=== PATIENT | female | born 1925 | race Caucasian/White ===

== ENCOUNTER 2016-09-22 11:05 | Emergency (ER) | payer MEDICARE ==
[2016-09-22 11:05] VITALS: BMI 21.1
[2016-09-22] MEDS ORDERED: SODIUM CHLORIDE 0.9% 10 ML FLUSH FLUSH PRN (11:14)
[2016-09-22] MEDS ORDERED: NS 1,000 ML IV ONE (11:14)
[2016-09-22 11:15] VITALS: TEMP 97.5
--- NOTE | 2016-09-22 11:17 | EDPRACDOC ---
- General Information Stated Complaint: FLU S/S Time Seen by Provider: 09/22/16 11:07 Information Source: Patient Mode Of Arrival: Ambulance Home Medications: Home Medications Atorvastatin Calcium [Lipitor] 10 mg PO DAILY 10/01/13 Levothyroxine [Synthroid, Levoxyl] 75 mcg PO DAILY 10/01/13 Raloxifene [Evista] 60 mg PO DAILY 10/01/13 Cholecalciferol (Vitamin D3) [Vitamin D3] 5,000 unit PO DAILY 09/22/16 Donepezil HCl [Aricept] 10 mg PO DAILY 09/22/16 Losartan Potassium [Cozaar] 50 mg PO DAILY 09/22/16 Nitrofurantoin [Macrobid] 100 mg PO BID #14 cap 09/22/16 Allergies/Adverse Reactions: Allergies Allergy/AdvReac Type Severity Reaction Status Date / Time codeine [Codeine] Allergy Unknown Nausea/Vomi Verified 09/22/16 13:23 ting - History of Present Illness Onset: 3 days Exact Onset of Symptoms: Unknown HPI: Pt c/o generalized weakness and malaise x 3 days. Denies fever, cough, congestion, cp, sob, abd pain, n/v, changes in bowel or bladder, leg swelling, rash. Symptoms Started: Reports: Gradually Symptoms Description: Constant Weakness: Bilateral: Generalized Symptoms: Reports: Weak Symptom Severity: Reports: Unable to performs ADL's Associated signs and symptoms:: Reports: None ED Past Medical History - History Reviewed Yes Nurses notes reviewed and agree except as marked - Patient Medical History Cardiac History: Reports: Hypertension, Hypercholesterolemia Systemic History: Reports: Hypothyroidism Surgical History: Reports: Cholecystectomy, Tonsillectomy/Adnoidectomy, Other ( RIGHT OOPHORECTOMY, bilateral hips) - Social Medical History Smoking Status: Never smoker ETOH: None Substance Abuse: None EDM Review of Systems - Review of Systems Constitutional: Fatigue, Weakness Ears: No Symptoms Reported. negative: Pain, Hearing Loss, Drainage, Ear Pulling Throat: Hoarseness. negative: No Symptoms Reported, Pain, Swelling Nose: No Symptoms Reported. negative: Congestion, Bleeding, Discharge, Injection, Swelling, Deformity, Ecchymosis, Tender, Abrasion, Laceration Mouth: No Symptoms Reported. negative: Pain, Drooling Respiratory: No Symptoms Reported. negative: Cough, Brassy Cough, Barky Cough, Shortness of Breath, Wheezing, Hemoptysis Cardiovascular: No Symptoms Reported. negative: Chest Pain, Palpitations, Syncope, Edema, Orthopnea, PND, Skin Mottling, Cyanosis Gastrointestinal: No Symptoms Reported. negative: Pain, Constipation, Nausea, Vomiting, Diarrhea, Melena, Formula Intolerance Genitourinary: No Symptoms Reported. negative: Dysuria, Hematuria, Frequency, Discharge, Bleeding, Testicular Pain, Neurological: Weakness. negative: No Symptoms Reported, Dizziness, Gait Difficulty, Headache, Numbness, Seizure, Speech Difficulty Musculoskeletal: No Symptoms Reported. negative: Neck, Chestwall, Ribs, Back, Shoulder, Arm, Elbow, Forearm, Wrist, Hand, Pelvis, Hip, Femur, Knee, Leg, Ankle , Foot Integumentary: No Symptoms Reported. negative: Itching, Rash, Bruising, Wound Allergic/Immunologic: No Symptoms Reported. negative: Hives, Itching Hematologic: No Symptoms Reported. negative: Lymphadenopathy, Easy Bruising, Easy Bleeding Psychiatric: No Symptoms Reported. negative: Anxiety, Depression, Hallucinations, Insomnia, Suicidal - Physical Exam Constitutional: Alert Oriented to: Time, Person, Place Last recorded Vital Signs: Oxygen Pulse Oxygen Saturation O2 Device Oxygen Flow Rate Fraction of Inspired Oxygen ( FIO2) - HEENT Head: Normal ( normocephalic) Eye Exam: Normal (PERRL, EOMI, Sclera white) Oropharynx: Normal (Pharynx:Moist without exudate,Gums-no swelling) Tympanic Membrane: Normal ENT EAC: Normal Nose: No Symptoms Reported (septum midline) Neck: Normal (FROM, trachea at midline) - Respiratory/Cardiovascular Respiratory: Normal - CTA (BBS clear to auscultation without adventitious sounds ) Cardiovascular: Normal (RRR without murmur, gallop or rub) - GI Auscultation: Normal (NABS) Palpation: Normal (Soft,No rebound or guarding, non distended) Tenderness: Non tender - Musculoskeletal Back: Normal (Non-Tender) Extremities: Normal (Normal tone, Pulses 2+ No cyanosis or edema, FROM) - Integumentary Skin: Normal, Warm, Dry Lymphatics: Normal (no adenopathy) - Neurologic Memory Impaired: Normal Motor Function: Normal (Normal tone, Pulses 2+ No cyanosis or edema, FROM) Cranial Nerve: Normal (CN II-X11 intact sensation, strength 5/5) Cerebellar: Normal Mood Description: Normal Perception: Normal - Differential Diagnosis Anemia, Dehydration, Electrolyte disorder, Hypoglycemia, Other (sepsis, UTI) - Results 09/22/16 12:40 09/22/16 14:10 09/22/16 15:03 Laboratory Results - last 24 hr 09/22/16 09/22/16 09/22/16 12:40 14:00 14:10 WBC 5.4 RBC 4.37 Hgb 14.5 Hct 42.7 MCV 98 MCH 33.2 H MCHC 34.0 RDW 13.5 Plt Count 310 MPV 8.6 Neut % (Auto) 55.0 Lymph % (Auto) 31.2 [place] % (Auto) 10.4 H Eos % (Auto) 2.0 Baso % (Auto) 1.4 Absolute Neuts (auto) 2.97 Absolute Lymphs (auto) 1.67 PT INR APTT Sodium 143 Potassium 4.1 Chloride 106 Carbon Dioxide 27 Anion Gap 14 BUN 10 Creatinine 1.00 Estimated GFR (MDRD) 52 L Glucose 88 Calculated Osmolality 273 Lactic Acid Calcium 8.6 Total Bilirubin 0.8 AST 23 ALT 24 Alkaline Phosphatase 51 L Creatine Kinase 61 Troponin I < 0.01 Total Protein 6.9 Albumin 4.1 Urine Color Yellow Urine Clarity Clear Urine pH 7.0 Ur Specific [place] 1.005 Urine Protein Neg Urine Glucose (UA) Neg Urine Ketones Neg Urine Occult Blood Neg Urine Nitrite Neg Urine Bilirubin Neg Urine Urobilinogen <2.0 Ur Leukocyte Esterase Neg Urine RBC 0-2 Urine WBC 10-20 H Urine Bacteria Few Urine Mucus Occ 09/22/16 09/22/16 14:10 14:10 WBC RBC Hgb Hct MCV MCH MCHC RDW Plt Count MPV Neut % (Auto) Lymph % (Auto) [place] % (Auto) Eos % (Auto) Baso % (Auto) Absolute Neuts (auto) Absolute Lymphs (auto) PT 10.9 INR 1.1 APTT 32.5 Sodium Potassium Chloride Carbon Dioxide Anion Gap BUN Creatinine Estimated GFR (MDRD) Glucose Calculated Osmolality Lactic Acid 1.1 Calcium Total Bilirubin AST ALT Alkaline Phosphatase Creatine Kinase Troponin I Total Protein Albumin Urine Color Urine Clarity Urine pH Ur Specific [place] Urine Protein Urine Glucose (UA) Urine Ketones Urine Occult Blood Urine Nitrite Urine Bilirubin Urine Urobilinogen Ur Leukocyte Esterase Urine RBC Urine WBC Urine Bacteria Urine Mucus - EKG EKG #1 EKG Time: 12:04 Rate: bpm: 60 [place]: Normal Rhythm: NSR, PVCs Block: None ST: Normal Comparison: 09/15/11 (no significant change) - Diagnostic Imaging Chest Image interpreted by: Radiologist IMPRESSION: No acute cardiopulmonary disease. Decision Time to Discharge: 15:03 - Departure Disposition: Home Condition: Good Final Diagnosis: UTI (urinary tract infection) Qualifiers: Urinary tract infection type: acute cystitis Hematuria presence: without hematuria Qualified Code(s): N30.00 - Acute cystitis without hematuria Instructions: Urinary Tract Infection in Women (ED), Dysuria Education/Counseling Given To: Patient Education/Counseling Given Regarding: Diagnosis, Treatment, Follow Up Referrals: Bandar Casas MD [Primary Care Provider] - One Week Prescriptions: Nitrofurantoin [Macrobid] 100 mg PO BID #14 cap Additional Instructions: Increase fluids. Return for worse or different symptoms.
--- NOTE | 2016-09-22 11:38 | DIRPT ---
CLINICAL DATA: Weakness for 3 days. EXAM: PORTABLE CHEST 1 VIEW COMPARISON: 09/17/2011 FINDINGS: Cardiac silhouette is normal in size and configuration. No mediastinal or hilar masses or evidence of adenopathy. There are mildly thickened interstitial markings bilaterally which are stable. No lung consolidation or edema. No pleural effusion or pneumothorax. Bony thorax is demineralized but grossly intact. IMPRESSION: No acute cardiopulmonary disease. Electronically Signed By: Obed Boles M.D. On: 09/22/2016 11:36
[2016-09-22] MEDS ORDERED: NS 1,000 ML IV SCH (12:00)
[2016-09-22 13:00] LABS: AUTOMATED BASOPHIL 1.4 % (0-2); AUTOMATED LYMPH 31.2 % (17-44); AUTOMATED MONOCYTE 10.4 % (3-10); MPV 8.6 fL (7.4-10.4)
[2016-09-22 14:44] LABS: BLOOD UREA NITROGEN 10 MG/DL (7-17); CALCIUM 8.6 MG/DL (8.4-10.2); CALCULATED OSMOLALITY 273 MOs/Kg (270-290); CHLORIDE 106 mEq/L (98-107); CPK TOTAL WITH POSSIBLE MB 61 IU/L (30-134); GLUCOSE 88 MG/DL (70-99); PARTIAL THROMB. TIME 32.5 SEC (22-35); PT-INR 1.1; SODIUM LEVEL 143 mEq/L (137-146); TOTAL PROTEIN 6.9 G/DL (6.3-8.2)
[2016-09-22 14:55] LABS: LEUKOCYTES/URINE NEG (NEGATIVE); NITRITE/URINE NEG (NEGATIVE); RBC/URINE 0-2 (0-5); URINE OCCULT BLOOD NEG (NEG/TRACE)
[2016-09-22 15:31] VITALS: BP 185/94; PULSE 61
== END 2016-09-22 15:33 | disposition home or self-care (01) ==
LOC: ED 11:05
DX: N30.00 Acute cystitis without hematuria (principal); I10 Essential (primary) hypertension; E78.00 Pure hypercholesterolemia, unspecified; E03.9 Hypothyroidism, unspecified; Z79.899 Other long term (current) drug therapy
CPT/HCPCS: 36415; 71010; 80053; 81001; 82550; 83605; 84484; 85025; 85610; 85730; 87040; 87077; 87086; 87186; 87804; 93005; 96360; 99284